=== PATIENT | male | born 1945 | race African-American/Black ===

== ENCOUNTER → 2017-09-17 | Outpatient (CLI) | payer OTHER ==
[~2017-09-17] MED LIST: AMLODIPINE BESYL5 MG PO; ASPIR 8181 MG PO; AUGMENTIN 875875 MG PO; FISH OIL 1,001000 M2 PO; HYDROCHLOROTHIA25 M1 PO; IRON325 PO; LECITHIN1200 MG PO; LEVAQUIN 500 M500 MG PO; MEDROLDOSEPACK PO; PATANASE30.5 GM NS; PLAVIX 75 MG TA75 MG PO; PRAVACHOL40 MG PO; PROAIR HFA8.5 GM INH; PROMETHAZINE D480 ML PO; TRANDATE 200 M200 M1 PO; ZETIA10 MG PO
== END ==
LOC: M.RAD 12:23
DX: M17.11 Unilateral primary osteoarthritis, right knee (principal)

== ENCOUNTER → 2020-04-27 | Outpatient (CLI) | payer OTHER | LOC: M.RAD 14:33 | PROVIDERS: ATTEND Registered Nurse Diabetes Educator | DX: M17.12 Unilateral primary osteoarthritis, left knee (principal); M25.462 Effusion, left knee; I70.8 Atherosclerosis of other arteries ==